=== PATIENT | female | born 1990 | race Caucasian/White ===

== ENCOUNTER 2019-09-05 09:33 | Emergency (ER) | payer BC, SELFPAY ==
--- NOTE | ~2019-09-05 | CT_ITS ---
EXAMINATION: CT facial bones w con DATE: 09/05/2019 12:14 INDICATION: Right toothache, facial swelling TECHNIQUE: Computed tomography (CT) of the facial bones and maxillofacial region was performed with 1 00 cc Omnipaque 350 intravenous contrast. Automated exposure control and iterative reconstruction henrry hnique were employed. Exam dose: 722.66 mGy-cm total exam DLP. COMPARISON: None. FINDINGS: There is subcutaneous fat stranding and fascial thickening along the right mandible. There is dental yash, periapical lucency consistent with periapical abscess involving #29 lower mandibular tooth. There is overlying outer cortical mandibular thinning, with a subtle cortical lucency. Likely reactive 15 x 9 mm right submandibular lymph node. The orbits appear normal. There is mild mucoperiosteal thickening of the left maxillary sinus. The frontal sinuses, ethmoid air cells and sphenoid sinuses and the mastoid air cells are normally developed and aerated. No facial fracture is evident. Parotid and submandibular glands are unremarkable. IMPRESSION: Periapical number 29 tooth periapical abscess with adjacent external cortical thinning a nd subtle cortical lucency and overlying right facial cellulitis Reviewed, dictated and finalized at [facility] Reviewed, dictated and finalized at [facility]. IOLOGY NURSE IMPRESSION: Periapical number 29 tooth periapical abscess with adjacent hoist operator al cortical thinning and subtle cortical lucency and overlying right facial luis angel lulitis
[2019-09-05 09:39] VITALS: BP 125/67; PULSE 72; RESP 16; TEMP 36.2; O2SAT 98
--- NOTE | 2019-09-05 10:09 | ED.DENTAL ---
HPI - Dental/Oral General Chief complaint: Dental/Oral Stated complaint: my cheek has swollen up Time Seen by Provider: 09/05/19 09:44 Source: patient Mode of arrival: ambulatory Limitations: no limitations History of Present Illness HPI Narrative: This is a 29-year-old female that presents to the emergency department for toothache x 2 days. Reports this morning she noted increasing swelling around her tooth and of her right cheek. Reports she had her teeth cleaned this week and was told by the dentist that she needs this tooth pulled. She was started on clindamycin. She has been taking this medication as prescribed. Denies fever, dysphagia, or dyspnea. MD Complaint: tooth pain (tooth # 29) Related Data Home Medications Medication Instructions Recorded Confirmed clindamycin HCl 300 mg PO QID 09/05/19 desogestrel-ethinyl estradiol 1 tablet PO DAILY 09/05/19 [Isibloom] metformin 500 mg PO BID 09/05/19 sertraline 100 mg PO DAILY 09/05/19 Allergies Allergy/AdvReac Type Severity Reaction Status Date / Time Penicillins Allergy Severe Hives Verified 09/05/19 09:57 hydromorphone Allergy Mild Itching Verified 09/05/19 09:57 tramadol Allergy Mild Headache Verified 09/05/19 09:57 Review of Systems Review of Systems: Narrative: CONSTITUTIONAL: Denies fever ENT: Reports dentalgia RESPIRATORY: Denies dyspnea. GASTROINTESTINAL: Denies vomiting All systems reviewed & are unremarkable except as noted in HPI and below PMFSH Past Medical History Medical History (Updated 09/05/19 @ 13:22 by No Segura PA-C) History of depression History of diabetes mellitus Social History Social History (Updated 09/05/19 @ 10:10 by No Segura PA-C) Substance use: never Gender identity (if verbalized by the patient): Female Exam Narrative: Exam Narrative: GENERAL: Well-appearing, well-nourished, and in no acute distress. HEAD: Normocephalic, atraumatic. EYES: PERRLA and EOMI. ENT: Mucous membranes moist. Oropharynx without tonsillar hypertrophy exudate or other lesions. Bilateral TMs pearly kurtz non-bulging. Tooth #29 with surrounding edema, erythema and fluctuance. Mild right-sided facial swelling, no erythema. Floor mouth is soft. No trismus NECK: Supple. No adenopathy or masses. CHEST: Clear to auscultation. No respiratory distress. No wheezes rales or rhonchi HEART: Regular rate and rhythm. No murmur heard. Normal peripheral pulses. EXTREMITIES: Normal range of motion. No edema. SKIN: Warm, dry, no rash. NEURO: No focal deficits. Alert and oriented x3. PSYCH: Normal mood and affect Course Vital Signs Vital signs: Vital Signs Temperature 97.1 F L 09/05/19 09:39 Pulse Rate 72 09/05/19 09:39 Respiratory Rate 16 09/05/19 09:39 Blood Pressure 125/67 09/05/19 09:39 Pulse Oximetry 98 09/05/19 09:39 Temperature 97.1 F L 09/05/19 09:39 Pulse Rate 72 09/05/19 09:39 Respiratory Rate 16 09/05/19 09:39 Blood Pressure 125/67 09/05/19 09:39 Pulse Oximetry 98 09/05/19 09:39 Procedures Abscess I/D other: Date of Incision: 09/05/19 Time of Incision: 13:20 Side (if applicable): right Local Anesthetic: other anesthetic (hurricaine) Technique: incised with #11 blade Irrigation: No Packing used?: none I&D Results: Pus and Blood Abcess I&D Additional Comments: Tooth #29 periapical abscess drained MDM - Dental/Oral Lab Data Result diagrams: 09/05/19 10:19 09/05/19 12:04 Labs: Lab Results 09/05/19 09/05/19 09/05/19 Range/Units 10:19 10:19 12:04 WBC 11.0 H (4.5-10.0) K/mm3 RBC 4.47 (4.2-5.4) M/mm3 Hgb 11.7 L (12.0-15.0) g/dL Hct 37.7 (37.0-47.0) % MCV 84.3 (80-100) fl MCH 26.2 (26-34) pg MCHC 31.0 L (32-36) g/dl RDW 13.9 (11.5-14.5) % Plt Count 216 (150-375) k/mm3 MPV 8.4 (7.4-10.4) fl Immature Gran % (Auto) 0.5 (0-0.5) % Neut % (
[2019-09-05 10:23] LABS: Basophils Absolute Auto 0.1 K/mm3 (0.0-0.1); Basophils Percent Auto 0.5 % (0.2-1.2); Eosinophils Absolute Auto 0.2 K/mm3 (0-0.3); Eosinophils Percent Auto 2.2 % (0-4.4); Hematocrit 37.7 % (37.0-47.0); Hemoglobin 11.7 g/dL (12.0-15.0); Immature Granulocyte Absolute 0.05 K/mm3 (0.00-0.031); Immature Granulocyte Percent A 0.5 % (0-0.5); Lymphocytes Absolute Auto 2.58 K/mm3 (0.9-3.2); Lymphocytes Percent Auto 23.5 % (18.3-44.2); Mean Corpuscular Hemoglobin 26.2 pg (26-34); Mean Corpuscular Volume 84.3 fl (80-100); Mean Platelet Volume 8.4 fl (7.4-10.4); Monocytes Absolute Auto 0.8 K/mm3 (0.1-0.6); Monocytes Percent Auto 7.5 % (2.6-8.5); Neutrophils Absolute Auto 7.2 K/mm3 (1.3-6.7); Neutrophils Percent Auto 65.8 % (45.5-73.1); Platelet Count Result 216 k/mm3 (150-375); Red Blood Count 4.47 M/mm3 (4.2-5.4); Red Cell Distribution Width 13.9 % (11.5-14.5)
[2019-09-05 10:40] LABS: CRP 4.2 mg/dL (<1.0)
[2019-09-05 10:48] LABS: Erythrocyte Sedimentation Rate 121 mm/hr (0-20)
[2019-09-05 12:06] LABS: Blood Urea Nitrogen 7 mg/dL (8-26); Estimated CRCL calculation 107 ml/min; Estimated Glomerular Filt Rate > 60
[2019-09-05 14:08] VITALS: BP 124/83; PULSE 70; RESP 16; O2SAT 100
== END 2019-09-05 14:09 | disposition home or self-care (01) ==
PROVIDERS: Physician Assistant; Emergency Provider Emergency Medicine
DX: K04.7 Periapical abscess without sinus (principal); E11.9 Type 2 diabetes mellitus without complications; F32.9 Major depressive disorder, single episode, unspecified
CPT/HCPCS: 36415; 41800; 70487; 81025; 85025; 85652; 86140; 99284; A9270; Q9967

== ENCOUNTER 2021-05-18 01:11 | Emergency (ER) | payer BC, SELFPAY ==
[2021-05-18 01:17] VITALS: BP 116/72; PULSE 98; RESP 20; TEMP 36.6; O2SAT 98
[2021-05-18 01:23] VITALS: O2SAT 98
--- NOTE | 2021-05-18 01:37 | ED.URI ---
HPI - URI/Sore Throat General Chief Complaint: Upper Respiratory Infection Stated Complaint: sore throat, cough, headache, Time Seen by Provider: 05/18/21 01:24 Source: patient Mode of arrival: ambulatory Limitations: no limitations History of Present Illness HPI Narrative: Patient is a 31-year-old female complaining of cough, productive, yellowish sputum, nasal congestion, sore throat and headache x5 days. Patient states that 2 of her children have similar URI symptoms. Related Data Home Medications Medication Instructions Recorded Confirmed clindamycin HCl 300 mg PO QID 09/05/19 desogestrel-ethinyl estradiol 1 tablet PO DAILY 09/05/19 [Isibloom] metformin 500 mg PO BID 09/05/19 sertraline 100 mg PO DAILY 09/05/19 Allergies Allergy/AdvReac Type Severity Reaction Status Date / Time Penicillins Allergy Severe Hives Verified 05/18/21 01:25 hydromorphone Allergy Mild Itching Verified 05/18/21 01:25 tramadol Allergy Mild Headache Verified 05/18/21 01:25 Review of Systems Review of Systems: All systems reviewed & are unremarkable except as noted in HPI and below Constitutional: Constitutional: Denies chills, Denies excessive sweating, Denies fatigue, Denies fever(s), Denies headache(s), Denies lethargy, Denies malaise, Denies weakness and Denies weight loss Eyes: Eyes: Denies blurry vision, Denies change in vision and Denies loss of vision ENT: Denies dizziness, Denies ear discharge, Denies headache(s), Denies lip swelling, Denies epistaxis, Denies neck pain, Denies throat swelling and Denies tongue swelling Cardiovascular: Cardiovascular: Denies chest pain, Denies chest pain at rest, Denies chest pain with activity, Denies diaphoresis, Denies rapid heart rate, Denies edema, Denies irregular heart rhythm, Denies lightheadedness, Denies palpitations, Denies dyspnea and Denies dyspnea on exertion Respiratory: Respiratory: Denies chest congestion, Denies hemoptysis, Denies dyspnea and Denies dyspnea on exertion Gastrointestinal: Gastrointestinal: Denies abdominal pain, Denies melena, Denies hematochezia, Denies diarrhea, Denies nausea, Denies vomiting and Denies hematemesis Musculoskeletal: Musculoskeletal: Denies abnormal gait, Denies deformity, Denies joint swelling, Denies limited range of motion, Denies neck pain and Denies numbness Neurologic: Denies Abnormal speech present, Denies abnormal gait, Denies confusion, Denies dizziness, Denies focal weakness, Denies loss of vision, Denies numbness, Denies Other visual disturbances, Denies Sensory deficit (Neuro) and Denies weakness Psychiatric: Psychiatric: Denies confusion, Denies depression, Denies auditory hallucinations, Denies homicidal ideation and Denies suicidal ideation Endocrine: Endocrine: Denies cold intolerance, Denies excessive sweating, Denies fatigue, Denies heat intolerance and Denies palpitations Hematologic/Lymphatic: Hematologic/Lymphatic: Denies easy bleeding and Denies easy bruising Allergic/Immunologic: Allergic/Immunologic: Denies lip swelling, Denies throat swelling and Denies tongue swelling PMFSH Past Medical History Medical History (Updated 05/18/21 @ 01:44 by Graeme Wright MD) History of depression History of diabetes mellitus Social History Social History (Updated 09/05/19 @ 10:10 by No Segura PA-C) Substance use: never Gender identity (if verbalized by the patient): Female Comments Past medical history: Gestational diabetes Family history: Noncontributory Social history: Non-smoker no EtOH or drug use Exam Const: General: cooperative, healthy appearing, comfortable, no acute distress, well developed, alert and awake; No confusion Orientation/consciousness: oriented to person, oriented to place, oriented to time, patient oriented x3 and No confusion Limitations: no limitations HENMT: Head: normal to inspection, normocephalic and atraumatic Ears: hearing grossly normal bilaterally, TM normal on the right and
== END 2021-05-18 02:03 | disposition home or self-care (01) ==
LOC: ANHED 01:50
PROVIDERS: Emergency Provider Emergency Medicine
DX: J06.9 Acute upper respiratory infection, unspecified (principal); E11.9 Type 2 diabetes mellitus without complications; F32.A Depression, unspecified; Z79.84 Long term (current) use of oral hypoglycemic drugs
CPT/HCPCS: 99281

== ENCOUNTER 2021-10-08 13:35 | Outpatient (CLI) | payer OTHER, SELFPAY ==
--- NOTE | ~2021-10-08 | XR_ITS ---
XR lumbar spine 6V w bending DATE: 10/08/2021 13:57 INDICATION: Low back pain, left sciatica for 8 months after having epidural TECHNIQUE: AP, lateral, bilateral oblique views, flexion and extension lateral views. COMPARISON: None FINDINGS: Normal alignment lumbar spine. No fracture or bone destruction, spondylolysis or spondyloli sthesis is evident. Lumbar and lumbosacral interspaces are well preserved. The pedicles are intact. T he sacral iliac joints are normal. Status post cholecystectomy. IMPRESSION: Negative lumbar spine Status post cholecystectomy Reviewed, dictated and finalized at [facility].
== END 2021-10-08 13:36 | disposition home or self-care (01) ==
LOC: ANHIMG 13:37
PROVIDERS: PCP Family Medicine; Visit Provider Nurse Practitioner Family
DX: M54.50 Low back pain, unspecified (principal); Z90.49 Acquired absence of other specified parts of digestive tract
CPT/HCPCS: 72114

== ENCOUNTER 2021-12-13 11:51 | Outpatient (CLI) | payer OTHER, SELFPAY ==
[2021-12-13 12:15] LABS: Hematocrit 37.2 % (37.0-47.0); Hemoglobin 11.2 g/dL (12.0-15.0); Mean Corpuscular HGB Conc 30.1 g/dl (32-36); Mean Corpuscular Hemoglobin 24.7 pg (26-34); Mean Corpuscular Volume 81.9 fl (80-100); Mean Platelet Volume 8.1 fl (7.4-10.4); Platelet Count Result 184 k/mm3 (150-375); Red Blood Count 4.54 M/mm3 (4.2-5.4); Red Cell Distribution Width 15.1 % (11.5-14.5); White Blood Count 8.8 K/mm3 (4.5-10.0)
[2021-12-13 12:24] LABS: Anion Gap 9 mmol/L (8-16); Blood Urea Nitrogen 10 mg/dL (7-17); Calcium 8.6 mg/dL (8.4-10.2); Carbon Dioxide 23 mmol/L (22-30); Chloride 106 mmol/L (98-107); Estimated Glomerular Filt Rate > 60; Glucose 192 mg/dL (65-110); Potassium 4.1 mmol/L (3.4-5.0); Sodium 138 mmol/L (137-145)
[2021-12-13 13:23] LABS: Vitamin D 25 Hydroxy 25.3 ng/mL
== END 2021-12-13 11:52 | disposition home or self-care (01) ==
LOC: ANHLAB 11:52
PROVIDERS: PCP Family Medicine; Visit Provider Nurse Practitioner Family
DX: R63.5 Abnormal weight gain (principal); F53.0 Postpartum depression; O99.345 Other mental disorders complicating the puerperium; E55.9 Vitamin D deficiency, unspecified
CPT/HCPCS: 36415; 80048; 82306; 84443; 85027

== ENCOUNTER 2021-12-17 11:47 | Outpatient (CLI) | payer OTHER, SELFPAY ==
[2021-12-17 12:07] LABS: Hematocrit 38.2 % (37.0-47.0); Hemoglobin 11.6 g/dL (12.0-15.0); Mean Corpuscular HGB Conc 30.4 g/dl (32-36); Mean Corpuscular Hemoglobin 24.8 pg (26-34); Mean Corpuscular Volume 81.6 fl (80-100); Mean Platelet Volume 8.3 fl (7.4-10.4); Platelet Count Result 184 k/mm3 (150-375); Red Blood Count 4.68 M/mm3 (4.2-5.4); Red Cell Distribution Width 15.1 % (11.5-14.5); White Blood Count 8.6 K/mm3 (4.5-10.0)
[2021-12-17 12:34] LABS: Iron 49 ug/dL (37-170)
[2021-12-17 12:43] LABS: Percent Iron Saturation 13 % (20-50)
[2021-12-17 12:52] LABS: Hemoglobin A1C 6.3 % (<5.7)
[2021-12-17 13:13] LABS: Vitamin D 25 Hydroxy 22.1 ng/mL
== END 2021-12-17 11:48 | disposition home or self-care (01) ==
PROVIDERS: PCP Family Medicine; Visit Provider Nurse Practitioner Family
DX: R73.09 Other abnormal glucose (principal); R79.89 Other specified abnormal findings of blood chemistry; D64.9 Anemia, unspecified; E55.9 Vitamin D deficiency, unspecified
CPT/HCPCS: 36415; 82306; 83036; 83540; 83550; 84436; 84443; 85027

== ENCOUNTER 2022-01-07 09:15 | Outpatient (RCR) | payer OTHER, SELFPAY ==
--- NOTE | 2021-11-05 16:01 | PTOPEVAL ---
PHYSICAL THERAPY INITIAL EVALUATION Thank you for referring Danelle Palacios to [facility] The patient is scheduled to be seen for therapy? 2x/week for 4 weeks. Please review, sign, date and return this plan of care PRAVEEN. I agree with and certify that the following plan of care is medically necessary. Referring Physician Date Attending Provider: ISACC Phelps *PT Outpatient Evaluation Start: 11/05/21 Evaluation Information Diagnosis Leg and low back pain Onset 9 months Subjective Information Pt states she has been having Query Text:As Reported By Patient/ back pain since she gave Family to her second child had an epidural 9 months ago. She states she had to sleep on the couch for 1-2 months because her bad was so uncomfortable. Pt states she can tell when the pain is going to come on, she states her back will go numb and her L leg will sometimes go numb starting from the lateral hip and cross to her medial knee. Pt states when her back goes numb she cannot do anything for the rest of the day. Pain Assessment Lower Back Reported Pain Level 3 Pain Description Cramping,Heavy,Numbness, Pressure,Sharp Pain Radiation Left Leg Lowest Pain Intensity 3 Greatest Pain Intensity 10 Pain Aggravating Factors Lifting,Procedure or Surgery, Sitting,Walking Cervical and Lumbar ROM Lumbar ROM Lumbar Flexion Active Mid Roberts Lumbar Extension (0-40) 40 Lateral Flexion 3 in above lateral knee joint line bilaterally Lateral Rotation Right (0-45) 20 Lateral Rotation Left (0-45) 20 Lumbar ROM 75% of Normal Lower Extremity Range of Motion General Lower Extremity Range of Motion WFL/Left,WFL/Right Lower Extremity Muscle Strength Testing General Lower Extremity Strength WFL/Left,WFL/Right Gross Lower Extremity Strength B LE grossly 4/5 B glute med 4-/5 B glute ext 3/5 unable to perform without substitutions. Posture Thoracic Spine Posture Flattened Lumbar Spine Posture Increased Lordosis Pelvis Posture Anteriorly Tilted Palpation Assessment Palpation Hip pain relief with long axis
--- NOTE | 2021-11-07 14:56 | PCPTNOTE ---
Patient called & cancelled scheduled appointment this date due to bad weather in the forecast.
--- NOTE | 2021-11-19 10:00 | PCPTNOTE ---
Patient called & cancelled scheduled appointment this date due to being sick.
--- NOTE | 2021-12-04 08:10 | PTOPEVAL ---
PHYSICAL THERAPY PROGRESS REPORT. Thank you for referring Danelle Palacios to [facility].? The patient is scheduled to be seen for therapy? 2x/week for 4 weeks. Please review, sign, date and return this plan of care PRAVEEN. I agree with and certify that the following plan of care is medically necessary. Referring Physician Date Attending Provider: ISACC Phelps Evaluation Information Diagnosis Leg and low back pain Onset 9 months Subjective Information Pt states the intensity of her Query Text:As Reported By Patient/ back pain has improved. She Family states prior to starting to therapy to she would have to sit on the couch and relax by 10am, she states this is later in the day before she has to relax more. She also declines any leg pain now, she states it is centralized in her back. Pt states she walked for 5 min straight on Friday and pushed her daughter in a stroller and had significant back pain that day. Pain Assessment Lower Back Reported Pain Level 2 Pain Description Aching,Tingling Greatest Pain Intensity 10 Lumbar ROM Lumbar Flexion Active Mid Roberts Lumbar Extension (0-40) 40 Lateral Flexion 1 in above lateral knee joint Query Text:Active Hands to: line bilaterally Lateral Rotation Right (0-45) 35 Lateral Rotation Left (0-45) 35 Lumbar ROM 75% of Normal Lumbar Comments pop felt in lumbar spine during active extension. Increased lumbar pain felt throughout rest of assessment. Lower Extremity Range of Motion General Lower Extremity Range of Motion WFL/Left,WFL/Right Lower Extremity Muscle Strength Testing General Lower Extremity Strength WFL/Left,WFL/Right Gross Lower Extremity Strength Martin LE grossly 4/5 Martin glute med 4-/5 Martin hip ext 4/5 Posture Posture Evaluation View Posterior Thoracic Spine Posture Flattened Lumbar Spine Posture Increased Lordosis Pelvis Posture Anteriorly Tilted Palpation Assessment Palpation Hip pain relief with long axis distraction. tenderness reported along L PSIS Safety Assessment Factors Affecting Safety Pain PT Clinical Summary Danelle presents to therapy
--- NOTE | 2021-12-11 12:37 | PCPTNOTE ---
Patient called and left voicemail stating she is sick and cannot make appointment this date.
--- NOTE | 2021-12-25 13:48 | PCPTNOTE ---
Patient called & cancelled scheduled appointment this date due to having a flat tire.
--- NOTE | 2022-01-02 15:25 | PTOPEVAL ---
PHYSICAL THERAPY PROGRESS REPORT. Thank you for referring Danelle Palacios to [facility].? The patient is scheduled to be seen for therapy? 1x/week for 4 weeks. Please review, sign, date and return this plan of care PRAVEEN. I agree with and certify that the following plan of care is medically necessary. Referring Physician Date Attending Provider: ISACC Phelps Evaluation Information Diagnosis Leg and low back pain Onset 9 months Subjective Information Pt states her back pain is Query Text:As Reported By Patient/ getting better, but slowly. Family She states she has not have the leg pain like she did when she started. Pt states she can move around her house, and take care of her girls without having to sit on the couch as much. Pt states she was walking around [place] yesterday and her back started cramping, she was able to use some techniques from therapy to help ease this. Pain Assessment Lower Back Reported Pain Level 0 Pain Description Aching,Cramping Greatest Pain Intensity 2 Lumbar ROM Lumbar Flexion Active Mid Roberts,Ankle Lumbar Extension (0-40) 40 Lateral Flexion 1 in above lateral knee joint Query Text:Active Hands to: line bilaterally Lateral Rotation Right (0-45) 40 Lateral Rotation Left (0-45) 40 Lumbar ROM 75% of Normal Lower Extremity Muscle Strength Testing General Lower Extremity Strength WFL/Left,WFL/Right Gross Lower Extremity Strength Martin LE grossly 4+/5 Martin glute med 4/5 Martin hip ext 4/5 Balance Assessment Time in Seconds 15 5 Time Sit to Stand Comments without use of UEs Gait Assessment Gait Pattern Trendelenburg Gait Other Gait Observations B genu varum, increased lateral trunk rotation, mild B LE circumduction 2 Minute Walk Total Distance Walked (feet) 380 2 Minute Walk Gait Speed Score (feet/ 3.16 second) Stair Climbing Assessment Stair Climbing Comments no notable deviations PT Clinical Summary Danelle presents to therapy for her progress report following 12 visits of skilled therapy to treat her low back pain and leg pain. Today she repor
--- NOTE | 2022-01-18 09:25 | PCPTNOTE ---
Patient called & cancelled scheduled appointment this date due to a family emergency.
--- NOTE | 2022-01-22 15:16 | PCPTNOTE ---
Patient called & cancelled scheduled appointment this date due to lack of transportation.
--- NOTE | 2022-01-31 13:08 | PCPTNOTE ---
Attending Provider: ISACC Phelps Patient:Danelle Palacios Date of :1990 PHYSICAL THERAPY DISCHARGE SUMMARY. Patient called and cancelled remaining appointments due to lack of transportation. Over the phone, she states she is doing well. Patient?s initial visit was on 11/05/2021 and she had a total of 14 visits. The goals have been partially met. Thank you for referring this patient to [facility]. Please review, sign, date and return this discharge summary PRAVEEN. I have been updated about the patient's current status and I agree with discharge from the above service at this time. Referring Physician Date
== END 2022-01-31 15:25 | disposition home or self-care (01) ==
LOC: ANHPT 09:15
PROVIDERS: PCP Family Medicine; Visit Provider Nurse Practitioner Family
DX: M54.50 Low back pain, unspecified (principal)
CPT/HCPCS: 97110; 97112; 97140; 97161; 97530

== ENCOUNTER 2022-01-31 10:48 | Outpatient (CLI) | payer OTHER, SELFPAY | END 2022-01-31 10:49 | disposition home or self-care (01) | LOC: ANHLAB 10:50 | PROVIDERS: PCP Family Medicine; Visit Provider Nurse Practitioner Family | DX: R79.89 Other specified abnormal findings of blood chemistry (principal); E03.9 Hypothyroidism, unspecified | CPT/HCPCS: 36415; 84436; 84443 ==

== ENCOUNTER 2022-05-29 20:08 | Emergency (ER) | payer OTHER, SELFPAY ==
[2022-05-29 20:29] VITALS: PULSE 114; RESP 16; TEMP 36.3; O2SAT 98
[2022-05-29 21:30] LABS: Influenza A QL RT-PCR Negative (Negative); Influenza B QL RT-PCR Negative (Negative); SARS-CoV-2 RNA PCR Positive
--- NOTE | 2022-05-29 21:37 | ED.URI ---
HPI - URI/Sore Throat General Chief Complaint: Upper Respiratory Infection Stated Complaint: flu like s/s Time Seen by Provider: 05/29/22 20:13 History of Present Illness HPI Narrative: 32-year-old female presents the emergency room complaints of sinus congestion, postnasal drip, cough, body aches, fever and headaches for 2 days. Patient states she is been taking Mucinex and Tylenol to alleviate her symptoms. Patient also states that she has had 5 COVID shots. Related Data Home Medications Medication Instructions Recorded Confirmed aripiprazole 2 mg tablet (Abilify) 5 mg PO DAILY 01/31/22 05/16/22 hydroxyzine pamoate 25 mg capsule 25 mg PO Q6H PRN 05/16/22 05/16/22 Allergies Allergy/AdvReac Type Severity Reaction Status Date / Time Penicillins Allergy Severe Hives Verified 05/16/22 14:49 hydromorphone Allergy Mild Itching Verified 05/16/22 14:49 tramadol Allergy Mild Headache Verified 05/16/22 14:49 Review of Systems Review of Systems: CONSTITUTIONAL: Denies fever, chills, or sweats. EYES: Denies visual changes, redness, or discharge. ENT: Reports rhinorrhea, and congestion CARDIOVASCULAR: Denies chest pain, palpitations, or edema. RESPIRATORY: Reports cough. GASTROINTESTINAL: Denies abdominal pain, nausea, vomiting, or diarrhea. GENITOURINARY: Denies dysuria or hematuria. SKIN: Denies rash or itching. MUSCULOSKELETAL: Denies back pain, joint pain, or myalgia. NEUROLOGIC: Denies headache, numbness, dizziness, or weakness. PSYCHIATRIC: Denies anxiety or depression. [facility] Past Medical History Medical History Abscess of heel, left Active asthma BMI 38.0-38.9,adult BMI 50.0-59.9, adult History of depression History of diabetes mellitus Morbid (severe) obesity due to excess calories Surgical History Surgical History Status post surgical removal of both fallopian tubes Family History Family History Father Hypertension Malignant neoplasm of prostate Cancer of kidney Mother Diabetes mellitus Depression with anxiety Sibling No problems noted. Social History Social History Smoking status: Never smoker Tobacco type: cigarettes Second hand tobacco smoke exposure: Yes Alcohol intake: former Substance use: never Substance use type: does not use Additional occupation/education comments: stay at home mom. Gender identity (if verbalized by the patient): Female Sexual Orientation (if Verbalized by the Patient): Straight or Heterosexual Spiritual care concerns: No Agree to blood products: Yes Exam Narrative: GENERAL: Well-appearing, well-nourished, no physical limitations, and in no acute distress. HEAD: Normocephalic, atraumatic. EYES: Conjunctivae normal, PERRLA and EOMI. ENT: External nose normal, Nares clear, no rhinorrhea or epistaxis. Mucous membranes moist. Oropharynx without tonsillar hypertrophy exudate or other lesions. External ears normal, bilateral TMs normal bilaterally NECK: Supple. No meningeal signs. No adenopathy or masses. CHEST: Rhonchi throughout no respiratory distress. No wheezes HEART: Regular rate and rhythm. No murmur heard. Normal peripheral pulses. ABDOMEN: Soft, nontender, morbidly obese nondistended, normal active bowel sounds. EXTREMITIES: Normal range of motion. No edema. No clubbing or cyanosis SKIN: Warm, dry, no rash. No noted wounds NEURO: No focal deficits. Alert and oriented x3. MAEW. CN's II-XI intact bilaterally, normal gait PSYCH: Cooperative. Normal mood and affect. Course Vital Signs Vital signs: Vital Signs Temperature 36.3 C L 05/29/22 20:29 Pulse Rate 114 H 05/29/22 20:29 Respiratory Rate 16 05/29/22 20:29 Pulse Oximetry 98 05/29/22 20:29 Temperature 36.3 C L 05/29/22 20:29 Pulse Rate 1
== END 2022-05-29 21:57 | disposition home or self-care (01) ==
PROVIDERS: Emergency Provider Nurse Practitioner Family; PCP Family Medicine
DX: U07.1 COVID-19 (principal); E11.9 Type 2 diabetes mellitus without complications; E66.01 Morbid (severe) obesity due to excess calories; Z79.84 Long term (current) use of oral hypoglycemic drugs
CPT/HCPCS: 87502; 99283; U0003; U0005